=== PATIENT | female | born 1980 | race Caucasian/White ===

== ENCOUNTER 2018-05-13 22:27 | Emergency (ER) | payer BC, OTHER ==
[~2018-05-13] VITALS: Ht 167.6 cm; Wt 77.1 kg
[2018-05-13 22:42] VITALS: BP_SYST 141
[2018-05-13] MEDS ORDERED: PROMETHAZINE 6.25 MG/ CODEINE 10 MG/ 5 ML PO ONE (23:45)
[2018-05-14 00:12] VITALS: BP_SYST 131
== END 2018-05-14 00:12 | disposition home or self-care (01) ==
LOC: SED 22:27
DX: J06.9 Acute upper respiratory infection, unspecified (principal); R05 Cough; R03.0 Elevated blood-pressure reading, without diagnosis of hypertension
CPT/HCPCS: 36415; 86710; 99283